=== PATIENT | female | born 1950 | race Caucasian/White ===

== ENCOUNTER 2016-10-31 11:41 | Emergency (ER) | payer MEDICARE, MEDICAID ==
[2016-10-31 11:54] VITALS: BP 160/45
--- NOTE | 2016-10-31 13:51 | UC ---
Respiratory Complaint HPI - HPI Summary HPI Summary: cough, congestion x 2 days. No fever, +chills "can't get warm", coughing so hard she is incontinent. Muscle aches, body aches, no energy. Had a flu shot - History of Current Complaint Chief Complaint: UCRespiratory Stated Complaint: COLD SXS Time Seen by Provider: 10/31/16 13:47 Hx Obtained From: Patient Hx Last Menstrual Period: n/a Onset/Duration: Gradual Onset, Lasting Days - 2, Still Present Timing: Constant Severity Initially: Moderate Severity Currently: Severe Pain Intensity: 0 Pain Scale Used: 0-10 Numeric Character: Sputum Description: - yellow, green Aggravating Factors: Nothing Alleviating Factors: Nothing Associated Signs And Symptoms: Positive: Chills, Wheezing, Nasal Congestion. Negative: Calf Pain, Calf Swelling - Risk Factors Pulmonary Embolism Risk Factors: Smoking Cardiac Risk Factors: Smoking Pseudomonas Risk Factors: Negative Tuberculosis Risk Factors: Smoking - Allergies/Home Medications Allergies/Adverse Reactions: Allergies Allergy/AdvReac Type Severity Reaction Status Date / Time No Known Allergies Allergy Verified 02/21/15 12:45 PMH/Surg Hx/FS Hx/Imm Hx Previously Healthy: No Respiratory History Of: Reports: Bronchitis - Surgical History Surgical History: Yes Surgery Procedure, Year, and Place: FEMORAL ARTERY STENTS, - Family History Known Family History: Positive: Cardiac Disease - Social History Occupation: Employed Part-time Lives: With Family Alcohol Use: Rare Substance Use Type: None Smoking Status (MU): Light Every Day Tobacco Smoker Type: Cigarettes Amount Used/How Often: 3 CIGS PER DAY Have You Smoked in the Last Year: Yes Household Exposure Type: Cigarettes Review of Systems Constitutional: Chills, Fatigue Skin: Negative Eyes: Negative ENT: Negative Respiratory: Cough Cardiovascular: Negative Gastrointestinal: Negative Genitourinary: Negative Motor: Negative Neurovascular: Negative Musculoskeletal: Arthralgia, Myalgia Neurological: Headache Psychological: Negative All Other Systems Reviewed And Are Negative: Yes Physical Exam Triage Information Reviewed: Yes Appearance: No Pain Distress, Well-Nourished, Ill-Appearing Vital Signs: Initial Vital Signs Temp 98.5 F 10/31/16 11:52 Pulse 89 10/31/16 11:52 Resp 24 10/31/16 11:52 BP 160/45 10/31/16 11:52 Pulse Ox 97 10/31/16 11:52 Vital Signs Reviewed: Yes Eyes: Positive: Conjunctiva Clear ENT: Positive: Hearing grossly normal, Pharynx normal, TMs normal Neck: Positive: Supple, Nontender, No Lymphadenopathy Respiratory: Positive: No respiratory distress, Wheezing - scattered exp Cardiovascular: Positive: RRR, No Murmur, Pulses Normal, Brisk Capillary Refill Musculoskeletal: Positive: Strength Intact, ROM Intact Neurological Exam: Normal Psychological Exam: Normal Skin Exam: Normal UC Diagnostic Evaluation - Laboratory O2 Sat by Pulse Oximetry: 97 Respiratory Course/Dx - Course Course Of Treatment: will treat empirically as influenza, despite the fact that pt had flu shot, as pt is in high risk group and she has had her sxs x 2 days. Pt advised of risks vs benefits of tamiflu and wants to try the tamiflu. - Differential Dx/Diagnosis Differential Diagnosis/HQI/PQRI: Bronchitis, Influenza, Lower Resp Infection Provider Diagnoses: influenza, clinical dx. tobacco abuse disorder. Discharge - Discharge Plan Condition: Stable Disposition: HOME Prescriptions: Albuterol 2.5MG/3ML (0.083%)* [Ventolin 2.5 MG/3 ML NEB.JUANA*] 2.5 mg INH Q6H # 30 neb.juana Benzonatate CAP* [Tessalon CAP*] 100 mg PO TID PRN #30 cap PRN Reason: Cough Oseltamivir CAP* [Tamiflu CAP*] 75 mg PO BID #10 cap Patient Education Materials: Influenza (ED) Referrals: Siena Scott MD [Primary Care Provider] -
== END 2016-10-31 14:31 | disposition home or self-care (01) ==
LOC: UCCORT 11:41
DX: J11.1 Influenza due to unidentified influenza virus with other respiratory manifestations (principal); R09.81 Nasal congestion; M79.1 Myalgia; I51.89 Other ill-defined heart diseases; F17.210 Nicotine dependence, cigarettes, uncomplicated; Z87.09 Personal history of other diseases of the respiratory system
CPT/HCPCS: 99212; G0463

== ENCOUNTER 2016-11-16 11:02 | Emergency (ER) | payer MEDICARE, MEDICAID ==
[2016-11-16 12:39] VITALS: BP 142/53
[2016-11-16] MEDS ORDERED: Fluorescein Sodium TOPICAL* 1 MG TEST ONE ×2 (13:06→13:07)
--- NOTE | 2016-11-16 13:24 | UC ---
Eye Complaint HPI - HPI Summary HPI Summary: 66 yo female was seen with conjunctivits about a week ago started on gentamicin eye drops now worse itchy red scant d/c irritated - History of Current Complaint Chief Complaint: UCEye Stated Complaint: EYE COMPLAINT Time Seen by Provider: 11/16/16 12:41 Hx Last Menstrual Period: n/a Onset/Duration: Gradual Onset, Lasting Weeks Timing: Constant Severity Initially: Mild Severity Currently: Moderate Pain Intensity: 3 Pain Scale Used: 0-10 Numeric Location of Injury: Conjunctiva Aggravating Factor(s): Nothing Associated Signs And Symptoms: Positive: Drainage (Purulent) - Allergies/Home Medications Allergies/Adverse Reactions: Allergies Allergy/AdvReac Type Severity Reaction Status Date / Time No Known Allergies Allergy Verified 02/21/15 12:45 PMH/Surg Hx/FS Hx/Imm Hx Previously Healthy: Yes Respiratory History Of: Reports: Bronchitis - Surgical History Surgical History: Yes Surgery Procedure, Year, and Place: FEMORAL ARTERY STENTS, 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 - Family History Known Family History: Positive: Cardiac Disease - Social History Alcohol Use: Rare Substance Use Type: None Smoking Status (MU): Light Every Day Tobacco Smoker Type: Cigarettes Amount Used/How Often: 3 CIGS PER DAY Have You Smoked in the Last Year: Yes Household Exposure Type: Cigarettes Review of Systems Constitutional: Negative Skin: Negative Eyes: Drainage, Eye Redness ENT: Negative Respiratory: Negative Cardiovascular: Negative Gastrointestinal: Negative Genitourinary: Negative Motor: Negative Neurovascular: Negative Musculoskeletal: Negative Neurological: Negative Psychological: Negative All Other Systems Reviewed And Are Negative: Yes Physical Exam Triage Information Reviewed: Yes Appearance: Well-Appearing, No Pain Distress, Well-Nourished Vital Signs: Initial Vital Signs Temp 98.6 F 11/16/16 12:33 Pulse 77 11/16/16 12:33 Resp 16 11/16/16 12:33 BP 142/53 11/16/16 12:33 Pulse Ox 99 11/16/16 12:33 Eyes: Positive: Conjunctiva Inflamed, Discharge, Other: - eomi/perrl/ flourescein stain (-) ENT: Positive: Hearing grossly normal. Negative: Nasal congestion, Nasal drainage, Trismus, Muffled/hoarse voice Neck: Positive: Supple, Nontender Respiratory: Positive: Lungs clear, Normal breath sounds, No respiratory distress Cardiovascular: Positive: RRR, No Murmur Musculoskeletal: Positive: ROM Intact, No Edema Neurological: Positive: Alert Skin: Positive: Other - slight eye lid edema/redness Eye Complaint Course/Dx - Differential Dx/Diagnosis Provider Diagnoses: conjunctivitis. suspect ocular sensitivity to gentamicin Discharge - Discharge Plan Condition: Stable Disposition: HOME Prescriptions: Erythromycin OPHTH.OINT* [Ilotycin OPHTH.OINT*] 1 applic BOTH EYES QID #1 ophth.oint Patient Education Materials: Conjunctivitis (ED) Referrals: Lawrence Rodriguez MD [Medical Doctor] - 1 Day (1-3 days if not better) Merissa Hughes MD [Medical Doctor] - (1-3 days if not better) Additional Instructions: I think you are sensitive to the drops you have been using stop GENTIMICIN eye drops try ZADITOR EYE DROPS (over the counter) see an eye doctor in 1-3 days if not better
== END 2016-11-16 13:41 | disposition home or self-care (01) ==
LOC: UCCORT 11:02
DX: H10.9 Unspecified conjunctivitis (principal); F17.210 Nicotine dependence, cigarettes, uncomplicated
CPT/HCPCS: 99212; A9270-GY; G0463